=== PATIENT | male | born 1980 | race Two or more races ===

== ENCOUNTER 2017-07-28 19:58 | Inpatient (IN) | payer MEDICAID ==
[~2017-07-28] VITALS: Ht 175.3 cm; Wt 85.5 kg
[2017-07-28 20:35] LABS: Basophils # (auto) 0.1 uL; Basophils % (auto) 0.8 % (0.0-2.0); Eosinophils # (auto) 0.1 uL; Eosinophils % (auto) 0.8 % (0.0-7.0); Hematocrit 43.7 % (41.0-53.0); Hemoglobin 14.9 g/dL (13.5-17.5); Lymphocytes # (auto) 1.8 uL; Lymphocytes % (auto) 17.9 % (10.0-50.0); Mean Corpuscular Hemoglobin 31.5 pg (28.0-32.0); Mean Corpuscular Volume 92.5 fL (80.0-100.0); Mean Platelet Volume 8.7 fL (6.9-10.8); Monocytes # (auto) 1.5 uL; Monocytes % (auto) 15.4 % (0.0-12.0); Neutrophils # (auto) 6.5 uL; Neutrophils % (auto) 65.1 % (37.0-80.0); Nucleated Red Blood Cells % 0.5 %; Platelet Count (auto) 239 10^3/uL (140-450); Red Cell Distribution Width 13.5 % (11.8-14.3)
[2017-07-28 20:46] LABS: INR 0.92 (0.9-1.15); Partial Thromboplastin Time 27.8 sec (22.64-33.71)
[2017-07-28 20:54] LABS: Albumin 3.8 g/dL (3.4-5.0); Anion Gap 6 (5-15); Aspartate Aminotransferase 66 U/L (15-37); Blood Urea Nitrogen 10 mg/dL (7-18); Calcium 8.9 mg/dL (8.5-10.1); Carbon Dioxide 31 mmol/L (21-32); Chloride 101 mmol/L (98-107); GFR African American 109 mL/min; GFR Non-African American 90 mL/min; Glucose 101 mg/dL (74-106); Potassium 3.8 mmol/L (3.5-5.1); Sodium 138 mmol/L (136-145)
[2017-07-28 20:58] LABS: Alkaline Phosphatase 87 U/L (45-117); Bilirubin, Total 0.4 mg/dL (0.2-1.0); Total Protein 8.5 g/dL (6.4-8.2)
[2017-07-29 01:07] LABS: Urine RBC None Seen /hpf (0 - 3)
[2017-07-29 01:28] LABS: Urine Bilirubin Negative (Negative); Urine Blood Negative /uL (Negative); Urine Color Yellow (Yellow); Urine Glucose Normal (Normal); Urine Ketone Negative (Negative); Urine Mucus FEW (None Seen); Urine Nitrite Negative (Negative); Urine Urobilinogen Normal (Negative)
[2017-07-29] MEDS ORDERED: IOHEXOL 350 MG/ML 100ML IJ ONE (06:00)
[2017-07-29] MEDS ORDERED: SODIUM CHLORIDE 0.9% 1,000 ML IV ONE ×2 (07:30→09:15)
[2017-07-29] MEDS ORDERED: HYDROcodone-ACET 5/325MG TAB PO PRN (09:15)
[2017-07-29] MEDS ORDERED: NITROGLYCERIN 0.4 MG SL TAB SL PRN (09:15)
[2017-07-29] MEDS ORDERED: ONDANSETRON HCL 4 MG/2 ML VIAL IV PRN (09:15)
[2017-07-29] MEDS ORDERED: KETOROLAC TROMETH 30 MG/ML 1ML VIAL IV PRN (09:15)
[2017-07-29] MEDS ORDERED: MORPHINE SULF INJ 2 MG/ML SYRINGE 1ML IV PRN (09:15)
[2017-07-29] MEDS: FOLIC ACID 1 MG TAB PO SCH (09:47)
[2017-07-29] MEDS: MULTIPLE VITAMINS W/ MINERALS TAB PO SCH (09:47)
[2017-07-29] MEDS: THIAMINE HCL 100 MG TAB PO SCH (09:47)
[2017-07-29] MEDS: ACETAMINOPHEN 325 MG TAB PO PRN ×2 (10:40→23:22)
[2017-07-29 16:58] VITALS: BP 105/70
[2017-07-29] MEDS ORDERED: PANTOPRAZOLE 40 MG TAB PO ONE (17:00)
[2017-07-29 22:00] VITALS: BP 134/73
[2017-07-30 05:00] VITALS: BP 117/70
[2017-07-30 07:00] LABS: Hematocrit 41.7 % (41.0-53.0); Mean Corpuscular Hemoglobin 31.4 pg (28.0-32.0); Mean Corpuscular Hgb Conc. 33.5 g/dL (32.0-36.0); Mean Corpuscular Volume 93.8 fL (80.0-100.0); Mean Platelet Volume 8.7 fL (6.9-10.8); Platelet Count (auto) 173 10^3/uL (140-450); Red Cell Distribution Width 13.7 % (11.8-14.3)
[2017-07-30 07:04] LABS: Metamyelocytes % 0; Myelocytes % 0; Promyelocytes % 0
[2017-07-30 07:11] LABS: BUN/Creatinine Ratio 14.6; Calcium 8.5 mg/dL (8.5-10.1); Potassium 4.1 mmol/L (3.5-5.1)
[2017-07-30 07:58] LABS: Platelet Estimate Adequate; Reactive Lymphocytes 4; Stomatocytes Few
[2017-07-30 09:00] VITALS: BP 116/72
[2017-07-30] MEDS: THIAMINE HCL 100 MG TAB PO SCH ×2 (09:13→10:39)
[2017-07-30] MEDS: PANTOPRAZOLE 40 MG TAB PO SCH ×2 (09:13→10:40)
[2017-07-30] MEDS: FOLIC ACID 1 MG TAB PO SCH ×2 (09:13→10:39)
[2017-07-30] MEDS: MULTIPLE VITAMINS W/ MINERALS TAB PO SCH ×2 (09:14→10:39)
[2017-07-30 11:22] VITALS: BP 116/72
[2017-07-30 13:00] VITALS: BP 118/78
== END 2017-07-30 14:40 | disposition home or self-care (01) | DRG 144 ==
LOC: ER 19:58 → TELE 19:59 → TELE-CENTR 07-29 14:58
PROVIDERS: ADMIT Internal Medicine; ATTEND Internal Medicine
DX: J20.9 Acute bronchitis, unspecified (principal); I42.9 Cardiomyopathy, unspecified; R07.89 Other chest pain; R07.2 Precordial pain; R00.0 Tachycardia, unspecified; F15.10 Other stimulant abuse, uncomplicated; Z82.49 Family history of ischemic heart disease and other diseases of the circulatory system; Z72.0 Tobacco use
CPT/HCPCS: 36415; 71010; 71275; 80048; 80053; 80307; 81001; 84443; 84484; 85007; 85025; 85027; 85379; 85610; 85652; 85730; 86141; 87040; 93306; 96360; 96361

== ENCOUNTER 2017-10-24 09:56 | Emergency (ER) | payer MEDICAID ==
[~2017-10-24] VITALS: Ht 177.8 cm; Wt 93.0 kg
[2017-10-24 11:14] VITALS: BP 129/86
== END 2017-10-24 11:16 | disposition home or self-care (01) ==
LOC: ER 09:56
DX: R07.89 Other chest pain (principal); Z87.891 Personal history of nicotine dependence
CPT/HCPCS: 71046